=== PATIENT | female | born 1950 | race African-American/Black ===

== ENCOUNTER 2017-12-13 09:58 | Emergency (ER) | payer MEDICARE, OTHER ==
[2017-12-13 10:21] VITALS: BP 87/57
--- NOTE | 2017-12-13 10:26 | ED Physician Documentation ---
Sore Throat/Dental Pain - HISTORIAN Historian: patient - HPI Stated Complaint: Sore throat for 2 days Chief Complaint: Sore Throat Further Comments: yes (67 year old female patient presents with complaint of sore throat since Sunday; states Tylenol and ibuprofen have not helped.) - ROS CONST: no problems CVS/RESP: none GI/: denies: nausea, vomiting MS/SKIN/LYMPH: denies: muscle aches, rash, leg swelling, ankle swelling, other NEURO/PSYCH: none - PAST HX Past History: denies: none Other History: other (HTN, OS, anxiety, seasonal allergies) Allergies/Adverse Reactions: Allergies Allergy/AdvReac Type Severity Reaction Status Date / Time codeine [Codeine] Allergy Verified 12/13/17 10:22 Iodinated Contrast Media - Allergy Verified 12/13/17 10:22 IV Dye [IV Dye, Iodine Containing Contrast ] Penicillins Allergy Verified 12/13/17 10:22 Sulfa (Sulfonamide Allergy Verified 12/13/17 10:22 Antibiotics) [Sulfa(Sulfonamide Antibiotics)] Home Medications: Ambulatory Orders Medication Instructions Recorded Loratadine/Pseudoephedrine 1 each PO DAILY #10 tab.er.12h 05/06/13 [Claritin-D 12 Hour Tablet] Amlodipine Besylate 5 mg PO DAILY u2 12/31/13 Clonazepam 0.5 mg PO qd-bid PRN u2 12/31/13 Ergocalciferol (Vitamin D2) 50,000 unit PO weekly av 12/31/13 [Vitamin D2] Topiramate [Topamax] 25 mg PO HS u2 12/31/13 Methocarbamol [Robaxin-750] 750 mg PO QID #40 tablet 02/05/15 Phenazopyridine HCl [Pyridium] 200 mg PO TID #30 tablet 02/05/15 Ketorolac Tromethamine [Toradol] 10 mg PO TID #15 tablet 05/27/16 Ketorolac Tromethamine [Toradol] 10 mg PO TID #15 tablet 05/27/16 Azithromycin [Zithromax] 250 mg PO DAILY #6 tablet 12/13/17 - SOCIAL HX Smoking History: cigarettes - FAMILY HX Family History: No - VITAL SIGNS Vital Signs: Vital Signs Temp Pulse Resp BP Pulse Ox 98.1 F 99 H 18 87/57 99 12/13/17 09:58 12/13/17 09:58 12/13/17 09:58 12/13/17 09:58 12/13/17 09:58 - REVIEWED ASSESSMENTS Nursing Assessment Reviewed: Yes Vitals Reviewed: Yes ED Results Lab/Radiology - Orders Orders: ED Orders Category Date Time Status Rapid Strep [GRP A STREP SCREEN] Stat Lab 12/13/17 10:20 Ordered Sore throat Physical Exam - EXAM General Appearance: mild distress Head/Neck: head nml inspection, trachea midline, no lymphadenopathy, thyroid nml , neck nml inspection Mouth/Throat: lips nml, gums nml, voice nml, no drooling, no air way problems, no thrush, membranes nml, pharyngeal erythema Respiratory: no resp. distress, breath sounds nml CVS: reg. rate & rhythm, heart sounds nml Skin: normal color, warm/dry, NR, INT, PAL, DR Neuro/Psych: oriented x3, mood/affect nml Discharge Clincal Impression: Strep pharyngitis Prescriptions: Azithromycin [Zithromax] 250 mg PO DAILY #6 tablet Referrals: Esther Guzman MD [Primary Care Provider] - 2 Days Additional Instructions: Chloraseptic spray or lozenges as needed for throat pain. Warm salt water gargles as needed pain Increase your fluid intake juices, hot tea, non-caffeinated beverages If you are congested - You may want to try Vicks rub on your chest and/or feet Use a humidifier in the room where you sleep. You can also sit in a steam filled bathroom 1-2 times a day. Tylenol or Ibuprofen as needed for fever, pain and body aches. supervisor volunteer services your antibiotic and start it today. Condition: Stable Disposition: 01 HOME, SELF-CARE Decision to Admit: NO Decision Time: 10:26
== END 2017-12-13 10:30 | disposition home or self-care (01) ==
LOC: ED 09:58
DX: J02.0 Streptococcal pharyngitis (principal)
CPT/HCPCS: 87880; 99283

== ENCOUNTER 2019-08-12 09:48 | Emergency (ER) | payer MEDICARE ==
--- NOTE | 2019-08-12 10:11 | ED Physician Documentation ---
General Adult - HISTORIAN Historian: patient - HPI Chief Complaint: Dyspnea Additional Information: 68yo female who states that she has not been feeling well for 5-6 days, worse over that last 3 days. Patient has a history of asthma. She is out of her inh aler and can not fin her nebulizer. Feels that she might have a bronchitis. Has been having some left anterior chest discomfort with radiation into her back. Worse with deep breathing. Has had some mild SOB, wheezing some. No modifying factors noted. Has bee nauseated some, no vomiting at this time. No diarrhea noted. States that she had a UTI several weeks ago and started on antibiotic, not sure if she took it right. Has been having some urinary frequency still. Some mild vaginal??? itching, burning. Had a cardiac workup at the [facility] recently and was told that everything was OK. Onset: days ago Timing: still present - ROS CONST: no problems. denies: fever, chills CVS/RESP: chest pain, shortness of breath - PAST HX Past History: asthma, hypertension, other (GERDs) Other History: other (intermittent headaches, chronic constipation) Surgeries/Procedures: hysterectomy, other (breast bx) Immunizations: influenza, pneumovax Allergies/Adverse Reactions: Allergies Allergy/AdvReac Type Severity Reaction Status Date / Time codeine [Codeine] Allergy Verified 08/12/19 10:29 Iodinated Contrast Media Allergy Verified 08/12/19 10:29 [IV Dye, Iodine Containing Contrast ] Penicillins Allergy Verified 08/12/19 10:29 Sulfa (Sulfonamide Allergy Verified 08/12/19 10:29 Antibiotics) [Sulfa(Sulfonamide Antibiotics)] iv dye Allergy Unknown Uncoded 08/12/19 10:29 Home Medications: Ambulatory Orders Medication Instructions Recorded Clonazepam 0.5 mg PO BID u2 12/31/13 Topiramate [Topamax] 25 mg PO TID u2 12/31/13 Albuterol Sulfate [Albuterol 2 inh IH Q4 PRN #1 hfa.aer.ad 08/12/19 Sulfate Hfa] Fluconazole [Diflucan] 150 mg PO QD #1 tablet 08/12/19 Hydrochlorothiazide [Hydrodiuril] 1 tab PO DAILY 08/12/19 Levofloxacin [Levaquin] 500 mg PO DAILY #10 tablet 08/12/19 Linaclotide [Linzess] 1 tab PO DAILY 08/12/19 Potassium Chloride [Klor-Con 10] 1 tab PO DAILY 08/12/19 amLODIPine BESYLATE [Norvasc] 2 tab PO DAILY 08/12/19 - SOCIAL HX Smoking History: less than 1 pack/day (7-8 cigarettes per day) Alcohol Use: none Drug Use: none - FAMILY HX Family History: Yes (diabetes) - VITAL SIGNS Vital Signs: Vital Signs Temp Pulse Resp BP Pulse Ox 87/57 12/13/17 09:58 Progress - Progress Progress: 11:15 Patient resting comfortably, no complaints at this time. Awaiting results of labs and x-ray. - EKG/XRAY/CT EKG: NSR, nonspecific ST T wave chg ED Results Lab/Radiology - Radiology Radiology Impressions: CHEST 2 VIEWS CLINICAL INDICATION: ORDER STATES COUGH AND CHEST CONGESTION; PT STATES CHEST PAIN X 3 DAYS, MAINLY LEFT SIDED AND DIZZINESS; (Hx) / Note time : 08/12/2019 11:00:38 AM User : Mara Hernandez ORDER STATES COUGH AND CHEST CONGESTION; PT STATES CHEST PAIN X 3 DAYS, MAINLY LEFT SIDED AND DIZZINESS; NO PRIOR IMAGING (DICOM Hx) (DICOM Hx) FINDINGS: Two views of the chest were obtained. There are low lung volumes bilaterally. No confluent infiltrate, consolidation, or effusion is present. The heart and mediastinal silhouettes are normal. The thoracic aorta is tortuous and atherosclerotic. IMPRESSION: low lung volumes but no consolidation General Adult Physical Exam - PHYSICAL EXAM GENERAL APPEARANCE: no distress EENT: ENT inspection normal NECK: normal inspection, thyroid normal, supple RESPIRATORY: no resp distress CVS: reg rate & rhythm, heart sounds normal, equal pulses, no murmur, no gallop, no JVD ABDOMEN: soft, no organomegaly, normal bowel sounds, no abdominal bruit, no distension, tenderness (mild RLQ area) BACK: normal inspection, no CVA tenderness SKIN: warm/dry, normal color EXTREMITIES: non-tender, no edema NEURO: oriented X3, CN's nml as tested, motor nml, sensation nml, mood/affect nml, cognition normal Discharge Clincal Impression: Bronchitis Prescriptions: Albuterol Sulfate [Albuterol Sulfate Hfa] 2 inh IH Q4 PRN #1 hfa.aer.ad PRN Reason: dyspnea Fluconazole [Diflucan] 150 mg PO QD #1 tablet Levofloxacin [Levaquin] 500 mg PO DAILY #10 tablet Referrals: Tamica Rachel FNP [Primary Care Provider] - 08/18/19 Additional Instructions: Take Levaquin once a day for 10 days. Take diflucan once to help with possible yeast infection. You may repeat this once after you are finished with Levaquin. Try to take some probiotic daily also. Use Albuterol inhaler as needed from wheezing/bronchospasms. Watch for fever or chills. If your breathing gets worse to follow-up with your primary care provider or return to the ED. Condition: Stable Decision to Admit: NO Date of Decison to Admit: 08/12/19 Decision Time: 11:41
[2019-08-12 10:33] VITALS: BP 128/79
[2019-08-12 11:06] LABS: BASOPHILS % 0.5 % (0.0-1.5); NEUTROPHILS # 2.9 # k/uL (1.4-7.7)
[2019-08-12 11:19] LABS: eGFR (Non-African) 42
--- NOTE | 2019-08-12 11:21 | Diagnostic Imaging Report ---
PATIENT MR#: [id number] PATIENT PATIENT NAME: CARROLL PEREZ DATE OF : 1950 REFERRING PHYSICIAN: Gino Corbett EXAM DATE: 08/12/2019 ACCESSION NUMBER: [id number] EXAM DESCRIPTION: CHEST 2VIEW CHEST 2 VIEWS CLINICAL INDICATION: ORDER STATES COUGH AND CHEST CONGESTION; PT STATES CHEST PAIN X 3 DAYS, MAINLY L EFT SIDED AND DIZZINESS; (Hx) / Note time : 08/12/2019 11:00:38 AM User : Mara Hernandez ORDER STATES COUGH AND CHEST CONGESTION; PT STATES CHEST PAIN X 3 DAYS, MAINLY LEFT SIDED AND DIZZINESS; NO PRIOR IMAGING (DICOM Hx) (DICOM Hx) FINDINGS: Two views of the chest were obtained. There are low lung volumes bilaterally. No confluent infiltrate, consolidation, or effusion is presen t. The heart and mediastinal silhouettes are normal. The thoracic aorta is tortuous and atherosclerotic. IMPRESSION: low lung volumes but no consolidation Read by: Dr. Joo Paula Transcribed by: Transcribed Date: Electronically signed by: Dr. Joo Paula Date signed: 08/12/2019 11:20:52 AM
[2019-08-12 14:46] LABS: APPEARANCE,URINE CLEAR (CLEAR); COLOR,URINE YELLOW (YELLOW); OCCULT BLOOD,URINE TRACE-INTACT (NEGATIVE); UROBILINOGEN URINE 0.2 Eu (0.2-1.0)
== END 2019-08-12 11:58 | disposition home or self-care (01) ==
LOC: ED 09:48
DX: J40 Bronchitis, not specified as acute or chronic (principal)
CPT/HCPCS: 80053; 81002; 84484; 85025; 93005; 99282; 99284; S1016